=== PATIENT | male | born 1960 | race African-American/Black ===

== ENCOUNTER → 2016-11-13 | Outpatient (CLI) | payer OTHER ==
[~2016-11-13] MED LIST: AMITRYPTYLINE PO; HYDROCODON-ACE1 EAC9 PO; METHOCARBAMOL500 MG PO; NAPROSYN500 MG PO; PERCOCET 10/3251 TAB PO; REMERON15 MG PO; ROBAXIN500 MG PO; SEROQUEL PO; SERTRALINE HCL100 M1 PO
--- NOTE | ~2016-11-13 | US136 ---
[facility] A Service of [facility] & [facility] RADIOLOGY TEXT RESULTS PATIENT: JOE CASTANEDA LOCATION: CNIV : 58 UNIT #: [id number] AGE: [address]: UMAIR BAZAN APRN SEX: M ORDER DR: [id number] [facility] [address] [place], [place] [address] [id number] O MR#: [id number] Acc #: [id number] NAME: OJE CASTANEDA : 1960 SEX: M STUDY DATE/TIME: 11/13/2016 10:41 UNIT: CNIV ROOM: STUDY DESCRIPTION: U/L [facility] Art Study [facility] Bil Attending Physician: Umair Bazan A.P.R.N. Ordering Physician: Umair Bazan A.P.R.N. Primary Care Physician: Umair Bazan A.P.R.N. MEDICAL IMAGING REPORT This report is preliminary unless electronic signature is present EXAM Ankle-brachial indices INDICATIONS 56-year-old male with hypertension tobacco use, bilateral lower extremity claudication, numbness and tingling. Symptoms for several months. FINDINGS Brachial pressure 125. Right ankle pressure 155. Left ankle pressure 147. Right SABA 1.24 left SABA 1.18. Slightly decreased toe-brachial index on the right. IMPRESSION 1. Normal ankle-brachial indices 2. Slightly decreased toe-brachial index on the right may indicate small vessel disease in the right foot Dictated by... Bryn Hinkle M.D. THIS IS AN ELECTRONICALLY VERIFIED REPORT Bryn Hinkle M.D. at 11/16/2016 8:36 AM EMMA/ankit TD: 11/14/2016 05:44 JOB #: [id number] MEDICAL IMAGING REPORT COPY
--- NOTE | ~2016-11-13 | US142 ---
[facility] A Service of [facility] & [facility] RADIOLOGY TEXT RESULTS PATIENT: JOE CASTANEDA LOCATION: CNIV : 58 UNIT #: [id number] AGE: [address]: UMAIR BAZAN APRN SEX: M ORDER DR: [id number] [facility] [address] [place], [place] [address] [id number] O MR#: [id number] Acc #: [id number] NAME: JOE CASTANEDA : 1960 SEX: M STUDY DATE/TIME: 11/13/2016 10:51 UNIT: CNIV ROOM: STUDY DESCRIPTION: US Upper Ext Arterial Exam Attending Physician: Umair Bazan A.P.R.N. Ordering Physician: Umair Bazan A.P.R.N. Primary Care Physician: Umair Bazan A.P.R.N. MEDICAL IMAGING REPORT This report is preliminary unless electronic signature is present EXAM Bilateral wrist-brachial indices INDICATIONS Right upper extremity numbness for several months. Patient had c-spine surgery October 2015. TECHNIQUE Sequential pressures were obtained through both upper extremities. Pulse volume recordings were generated. FINDINGS Wrist-brachial index at the radial artery on the right is 1.10 and at the ulnar artery on the right is 1.05. The wrist-brachial index at the ulnar artery on the left is 0.98 and at the radial artery on the left is 1.10. I think pulse volume recordings appear well preserved. Patient's digital-brachial indices were normal bilaterally at 1.10 on the right and 1.26 on the left, and again, pulse volume recordings within the digits appear unremarkable. IMPRESSION Perhaps minimally diminished wrist-brachial index within the left ulnar artery may be artifactual and related to technique, as the pulse volume recordings appear well preserved. Remainder of the study is normal. Dictated by... Mariposa Rizo M.D. THIS IS AN ELECTRONICALLY VERIFIED REPORT Mariposa Rizo M.D. at 11/17/2016 5:58 PM AFF/psc [facility] A Service of [facility] & [facility] RADIOLOGY TEXT RESULTS PATIENT: JOE CASTANEDA LOCATION: CNIV : 58 UNIT #: [id number] AGE: [address]: UMAIR BAZAN APRN SEX: M ORDER DR: TD: 11/16/2016 20:34 JOB #: [id number] MEDICAL IMAGING REPORT Page 1 of 1 COPY
== END | disposition home or self-care (01) ==
LOC: CNIV 10:33
DX: R20.2 Paresthesia of skin (principal); I73.9 Peripheral vascular disease, unspecified
CPT/HCPCS: 93922; 93923

== ENCOUNTER 2017-02-04 18:04 | Emergency (ER) | payer OTHER ==
--- NOTE | ~2017-02-04 | EKG ---
PATIENT: JOE CASTANEDA UNIT #: [id number] Ventricular Rate: 71 BPM Atrial Rate: 71 BPM P-R Interval: 170 ms QRS Duration: 94 ms Q-T Interval: 396 ms QTC Calculation(Bezet): 430 ms P Greer: 46 degrees Calculated R Greer: 9 degrees Calculated T Greer: 38 degrees Diagnosis Line: Normal sinus rhythm Diagnosis Line: Possible Left atrial enlargement Diagnosis Line: Left ventricular hypertrophy Diagnosis Line: Borderline ECG Diagnosis Line: When compared with ECG of 23-APR-2016 12:19, Diagnosis Line: No significant change was found Diagnosis Line: Confirmed by ABILIO MANCILLA MD ([id number]) on 02/07/2017 Diagnosis Line: 4:09:36 PM INTERPRETING MD: LAURENT GUARDADO
--- NOTE | ~2017-02-04 | CR72 ---
[facility] A Service of [facility] & [facility] RADIOLOGY TEXT RESULTS PATIENT: JOE CASTANEDA LOCATION: [facility] : 58 UNIT #: [id number] AGE: [address]: Randy Crawford MD SEX: M ORDER DR: [id number] [facility] [address] [place], [place] [address] [id number] E MR#: [id number] Acc #: [id number] NAME: JOE CASTANEDA. : 1960 SEX: M STUDY DATE/TIME: 02/04/2017 19:12 UNIT: [facility] ROOM: STUDY DESCRIPTION: CR Chest Single View Portable Attending Physician: Randy Crawford M.D. Ordering Physician: Rut Siddiqui P.A.-C. MEDICAL IMAGING REPORT This report is preliminary unless electronic signature is present EXAM Portable chest INDICATIONS Chest pain and shortness of air for the past week. TECHNIQUE Frontal view chest. COMPARISON STUDIES 12/15/2016. FINDINGS Heart size is normal. No dense consolidation. No appreciable pleural fluid or pneumothorax. IMPRESSION No active process. No change from 12/15/2016. Dictated by... Shabbir Burnett M.D. THIS IS AN ELECTRONICALLY VERIFIED REPORT Shabbir Burnett M.D. at 02/04/2017 10:24 PM EED/minerva TD: 02/04/2017 22:05 JOB #: [id number] MEDICAL IMAGING REPORT Page 1 of 1 COPY
[2017-02-04 19:48] LABS: BASOPHIL% 0.5 % (0-2.5); DIFF IND NO; EOSINOPHIL# 0.2 X10e3 (0-0.7); EOSINOPHIL% 3.9 % (0.0-7.0); HEMATOCRIT 38.4 % (38.0-50.0); HEMOGLOBIN 12.1 gm/dL (13.0-16.0); LYMPHOCYTE# 1.6 X10e3 (1.0-3.5); LYMPHOCYTE% 34.9 % (17.0-45.0); MEAN CELL VOLUME 90.1 FL (83-96); MEAN CORPUSCULAR HEMOGLOBIN 28.4 PG (28-34); MEAN CORPUSCULAR HGB CONC 31.5 g/dL (30-36); MEAN PLATELET VOLUME 8.4 FL (6.5-11.5); MONOCYTE# 0.4 X10e3 (0-1.0); MONOCYTE% 9.4 % (3.0-12.0); NEUTROPHIL# 2.3 X10e3 (1.5-7.1); NEUTROPHIL% 51.3 % (40-75); PLATELET COUNT 227 X10e3 (140-420); RED BLOOD COUNT 4.26 X10e (3.90-5.60); RED CELL DISTRIBUTION WIDTH 14.5 % (11.0-15.5); WHITE BLOOD COUNT 4.6 X10e3 (4.0-10.5)
[2017-02-04 19:51] LABS: POC - CKMB <1.0 ng/mL (0.0-7.9); POC - TROPONIN <0.05 ng/mL (<=0.05)
[2017-02-04 20:19] LABS: CALCIUM SERUM 8.6 mg/dL (8.4-10.2); GLOM FILT RATE Estimated 96.4 mL/min (>60); POTASSIUM 3.5 mmol/L (3.5-5.1)
== END 2017-02-04 21:35 | disposition home or self-care (01) ==
LOC: CFTX 18:04 → CED 18:04 → CFTX 18:21 → CED 21:35
PROVIDERS: Emergency Medicine; Physician Assistant
DX: F45.0 Somatization disorder (principal); F32.9 Major depressive disorder, single episode, unspecified; I10 Essential (primary) hypertension; F17.210 Nicotine dependence, cigarettes, uncomplicated
CPT/HCPCS: 36415; 71010; 80048; 82553; 84484; 85025; 93005; 99283